=== PATIENT | female | born 1960 | race Two or more races ===

== ENCOUNTER 2022-12-10 07:56 | Day surgery (SDC) | payer MEDICAID ==
[2022-12-04 09:44] LABS: Basophils # (auto) 0 10 ^3/uL (0-0.2); Eosinophils # (auto) 0.2 10 ^3/uL (0-0.8); Lymphocytes # (auto) 1.7 10 ^3/uL (0.4-5.4); Monocytes # (auto) 0.5 10 ^3/uL (0-1.3); Monocytes % (auto) 7.2 % (0.0-12.0); Neutrophils # (auto) 4.5 10 ^3/uL (1.6-8.6); Neutrophils % (auto) 65.5 % (37.0-80.0); White Blood Cell 6.9 10^3/uL (4.4-10.8)
[2022-12-04 09:46] LABS: Basophils % (auto) 0.7 % (0.0-2.0); Eosinophils % (auto) 2.5 % (0.0-7.0); Hematocrit 30.4 % (36.0-46.0); Hemoglobin 9.7 g/dL (12.2-16.2); Lymphocytes % (auto) 24.1 % (10.0-50.0); Mean Corpuscular Hgb Conc. 31.8 g/dL (32.0-36.0); Mean Corpuscular Volume 69.2 fL (80.0-100.0); Red Blood Cells 4.39 10^6/uL (4.0-5.20); Red Cell Distribution Width 17.9 % (11.8-14.3)
[2022-12-04 09:49] LABS: Urine Bacteria NONE SEEN /hpf (None Seen); Urine Blood Negative /uL (Negative); Urine Clarity Clear (Clear); Urine Protein, UAD Negative (Negative); Urine Specific Gravity 1.017 (1.001-1.035); Urine Urobilinogen Normal (Negative); Urine WBC 1 /hpf (0 - 5); Urine pH 5.5 (5.0-8.0)
[2022-12-04 10:00] LABS: Urine Color Straw (Yellow)
[2022-12-04 10:23] LABS: Alkaline Phosphatase 94 U/L (46-116); Anion Gap 7 (5-15); Aspartate Aminotransferase 14 U/L (13-40); BUN/Creatinine Ratio 31.8 (10.0-20.0); Blood Urea Nitrogen 21 mg/dL (9-23); Calcium 9.5 mg/dL (8.5-10.1); Carbon Dioxide 27 mmol/L (20-30); Chloride 103 mmol/L (98-107); Glucose 118 mg/dL (74-106); Potassium 4.5 mmol/L (3.5-5.1); Sodium 137 mmol/L (136-145)
[2022-12-04 10:24] LABS: Albumin 4.4 g/dL (3.2-4.8)
[2022-12-04 10:25] LABS: Bilirubin, Total 0.3 mg/dL (0.2-1.0); Total Protein 7.8 g/dL (5.7-8.2)
[2022-12-04 10:40] LABS: Alanine Aminotransferase < 9 U/L (7-40)
[2022-12-04 10:55] LABS: INR 1.05 (0.9-1.15); Partial Thromboplastin Time 34.8 SEC (24.5-34.5)
[~2022-12-10] VITALS: Ht 152.4 cm; Wt 69.9 kg
[~2022-12-10 07:56] MED LIST: GLYB2.5T9 PO; IBUP-1453 PO; LISI20TA56 PO
[2022-12-10] MEDS ORDERED: ceFAZolin 2 GM/D5W100ml 100 ML IV ONE (09:03)
[2022-12-10] MEDS ORDERED: BUPIVACAINE 0.5% P/F INJ 10 ML VIAL ONE (10:00)
[2022-12-10] MEDS ORDERED: LIDOCAINE 1% HCL (LOCAL ANESTH.) INJ 20ML MDV ONE (10:00)
[2022-12-10] MEDS ORDERED: fentaNYL CITRATE 100 MCG/2 ML VL ONE (11:03)
[2022-12-10] MEDS ORDERED: MIDAZOLAM HCL 2MG/2ML 2ml VIAL (1mg/ml) ONE (11:04)
[2022-12-10] MEDS ORDERED: ONDANSETRON HCL 4 MG/2 ML VIAL ONE (11:05)
[2022-12-10] MEDS ORDERED: PROPOFOL 10 MG/ML 20 ML IV ONE (11:05)
[2022-12-10] MEDS ORDERED: LIDOCAINE 2% (LOCAL ANESTH.) PF 5ml SDV ONE (11:05)
[2022-12-10 11:52] VITALS: PULSE 67; RESP 12; TEMP 97.8; O2SAT 100
[2022-12-10 11:55] VITALS: PULSE 74; RESP 14; O2SAT 100
[2022-12-10] MEDS ORDERED: GLYCOPYRROLATE 0.2 MG/ML 1ML VIAL ONE (11:55)
[2022-12-10] MEDS ORDERED: NEOSTIGMINE 1 MG/ML INJ (10mg/10ML VIAL) ONE (11:55)
[2022-12-10 12:00] VITALS: PULSE 69; RESP 12; O2SAT 100
[2022-12-10 12:05] VITALS: PULSE 57; O2SAT 100
[2022-12-10] MEDS ORDERED: ONDANSETRON HCL 4 MG/2 ML VIAL IV PRN (12:15)
[2022-12-10] MEDS ORDERED: HYDROmorphone HCL 2 MG/ML VL/or syr IV PRN (12:15)
[2022-12-10] MEDS ORDERED: HYDROmorphone HCL 2 MG/ML VL/or syr IV ONE (12:31)
[2022-12-10 12:47] VITALS: BP 143/74; PULSE 54; RESP 15; O2SAT 100
== END 2022-12-10 13:20 | disposition home or self-care (01) ==
LOC: SUR 07:56
PROVIDERS: ATTEND Podiatrist
DX: M67.472 Ganglion, left ankle and foot (principal); E11.9 Type 2 diabetes mellitus without complications; I10 Essential (primary) hypertension; Z79.84 Long term (current) use of oral hypoglycemic drugs; Z79.899 Other long term (current) drug therapy
CPT/HCPCS: 28039; 36415; 80053; 81001; 82962; 85025; 85610; 85730; 88305; J1170; J2001; J2250; J2405; J2704; J3010; J3490

== ENCOUNTER → 2023-01-21 | Outpatient (CLI) | payer MEDICAID | END | disposition home or self-care (01) | LOC: LAB 16:38 | PROVIDERS: ATTEND Podiatrist | DX: M67.472 Ganglion, left ankle and foot (principal) | CPT/HCPCS: 87205 ==

== ENCOUNTER → 2024-04-07 | Day surgery (SDC) | payer MEDICAID ==
[2024-04-04 10:08] LABS: Urine Bacteria None Seen /hpf (None Seen)
[2024-04-04 10:34] LABS: Basophils # (auto) 0.1 10 ^3/uL (0-0.2); Basophils % (auto) 0.9 % (0.0-2.0); Eosinophils # (auto) 0.2 10 ^3/uL (0-0.8); Hematocrit 31.5 % (36.0-46.0); Hemoglobin 10.7 g/dL (12.2-16.2); Lymphocytes # (auto) 1.1 10 ^3/uL (0.4-5.4); Lymphocytes % (auto) 19.1 % (10.0-50.0); Mean Corpuscular Hemoglobin 27.7 pg (28.0-32.0); Mean Corpuscular Hgb Conc. 33.9 g/dL (32.0-36.0); Mean Corpuscular Volume 81.6 fL (80.0-100.0); Monocytes # (auto) 0.5 10 ^3/uL (0-1.3); Monocytes % (auto) 8.5 % (0.0-12.0); Neutrophils # (auto) 3.9 10 ^3/uL (1.6-8.6); Neutrophils % (auto) 68.5 % (37.0-80.0); Nucleated Red Blood Cells % 0.1 %; Platelet Count (auto) 402 10^3/uL (140-450); Red Blood Cells 3.86 10^6/uL (4.0-5.20); Red Cell Distribution Width 16.2 % (11.8-14.3); White Blood Cell 5.7 10^3/uL (4.4-10.8)
[2024-04-04 10:48] LABS: Alanine Aminotransferase 17 U/L (7-40); Albumin 4.5 g/dL (3.2-4.8); Alkaline Phosphatase 85 U/L (46-116); Anion Gap 6 (5-15); Aspartate Aminotransferase 13 U/L (13-40); BUN/Creatinine Ratio 19.6 (10.0-20.0); Bilirubin, Total 0.4 mg/dL (0.2-1.0); Blood Urea Nitrogen 11 mg/dL (9-23); Carbon Dioxide 29 mmol/L (20-31); Glucose 100 mg/dL (74-106); Potassium 4.5 mmol/L (3.5-5.1)
[2024-04-04 10:50] LABS: Urine Blood Negative /uL (Negative); Urine Clarity Clear (Clear); Urine Protein, UAD Negative (Negative); Urine Specific Gravity 1.006 (1.001-1.035); Urine Squamous Epithelial Cell FEW /hpf (<5); Urine Urobilinogen Normal (Negative); Urine WBC 2 /HPF (0-5); Urine pH 6.5 (5.0-9.0)
[2024-04-04 10:51] LABS: Urine Color Light-Yellow (Yellow)
[2024-04-04 10:53] LABS: Chloride 93 mmol/L (98-107); Sodium 128 mmol/L (136-145)
[2024-04-04 11:20] LABS: INR 0.99 (0.9-1.15); Partial Thromboplastin Time 33.3 SEC (24.5-34.5); Prothrombin Time 10.5 sec (9.3-11.8)
[~2024-04-07] VITALS: Ht 152.4 cm; Wt 73.5 kg
[~2024-04-07] MED LIST changes: +BENA40TA83 PO; +FER325T PO; +FOLI-119 PO; +HYDR-4491 OR; +HYDR25TA4 PO; -IBUP-1453 PO; -LISI20TA56 PO; +METH2.5T PO; +NAP500T PO; +PROPOFOL 10 MG/ML 20 ML IV ONE; +ePHEDrine SULFATE 50 MG/ML AMP ONE; +fentaNYL CITRATE 100 MCG/2 ML VL ONE
--- NOTE | 2024-04-07 10:58 | DVHHP2 ---
GI H&P Pre-Op Assessment Date: 04/07/24 Chief complaint: Anemia HPI: per clinic note Past medical history: per clinic note Past surgical history: per clinic note Family history: per clinic note Physical exam: General: NAD, AAOX3 HEENT: PERRL, no scleral icterus, normal hearing, gums without lesions or bleeding, oropharynx clear without erythema or exudate. Neck: Supple without enlargement of the thyroid, or lymphadenopathy. Chest: Normal size and shape, no tenderness, lung chavez clear to auscultation and percussion, nonlabored breathing. Heart: RRR, no murmur Abdomen: non-distended, no tenderness to palpation, +BS, no hepatosplenomegaly Extremities: no edema Neurological: CN II-XII intact, sensation intact in all extremities, 5+ strength in all extremities Skin: No rashes, No jaundice Assessment: - anemia Plan: - EGD - Colonoscopy - Risks (bleeding, infection, perforation, reaction to sedation medications and cardiopulmonary arrest) and benefit of the procedure were explained to patient. Patient agrees to undergo the procedure. LAUREN LOZANO MD Apr 07, 2024 10:58
[2024-04-07 11:30] VITALS: PULSE 82; RESP 17; TEMP 97.7
--- NOTE | 2024-04-07 11:31 | DVHOP2 ---
Operative Report DATE OF OPERATION: 04/07/24 PROCEDURE: Upper Endoscopy. PREOPERATIVE INDICATION: The patient is a 64 -year-old female undergoing endoscopy for anemia. POSTOPERATIVE DIAGNOSES: 1. Mild gastritis 2. Gastric polyps are likely to be fundic gland polyps. PROCEDURE PERFORMED BY: Thong Agarwal SCOPE: Olympus videoendoscope. ASA CLASS: 3 PREOPERATIVE MEDICATIONS: MAC with Dr Hyman PROCEDURE IN DETAIL: After obtaining an informed consent, the patient was placed on left lateral decubitus position. The patient was then sedated with the above medications. A bite block was placed between her teeth. The endoscope was then passed through the oropharynx, into the esophagus, and through the stomach and pylorus up to the second and third part of the duodenum. The duodenum was normal appearance. There was mild gastritis. Gastric biopsy obtained using cold biopsy forceps. There were gastric polyps the likely to be fundic gland polyps. Biopsy of the polyps was obtained with cold biopsy forceps. The GE junction was normal in appearance at 31 cm. The esophagus was normal in appearance. The endoscope was then withdrawn. The patient tolerated the procedure well without difficulty. COMPLICATIONS : None SPECIMENS: Gastric biopsies, gastric polyp biopsies DISPOSITION: D/C to home PLAN: 1. Await for biopsy result 2. Will place pt on Protonix THONG AGARWAL MD Apr 07, 2024 11:31
--- NOTE | 2024-04-07 11:32 | DVHOP2 ---
Operative Report DATE OF OPERATION: 04/07/24 PROCEDURE: Colonoscopy. PREOPERATIVE INDICATION: The patient is a 64 -year-old female undergoing colonoscopy for anemia. POSTOPERATIVE DIAGNOSES: 1. Normal terminal ileum 2. Diffuse diverticulosis 3. Internal hemorrhoids PROCEDURE PERFORMED BY: Thong Agarwal M.D. SCOPE: Olympus videocolonoscope. ASA CLASS: 3 PREOPERATIVE MEDICATIONS: MAC with Dr Hyman PROCEDURE IN DETAIL: After obtaining an informed consent, the patient was placed on left lateral decubitus position. She was then sedated with the above medications. A rectal examination was performed that was normal. The colonoscope was then passed through the anus into the rectosigmoid and through the descending, transverse, and ascending colon up to the cecum with visualization of the appendiceal orifice, base of the cecum and the ileocecal valve. The colonoscope was advanced into the terminal ileum. The observed terminal ileum was normal in appearance. There was diffuse diverticulosis. No mass or polyp was observed in the colon. There were internal hemorrhoids. The colonoscope was then withdrawn. The patient tolerated the procedure well without difficulty. WITHDRAWAL TIME: 8 minutes QUALITY OF THE PREP: [place] Bowel Prep score: 7 COMPLICATIONS : None SPECIMENS: None DISPOSITION: D/C to home PLAN: 1. Patient care repeat colonoscopy in 10 years for colon cancer screening. THONG AGARWAL MD Apr 07, 2024 11:32
--- NOTE | 2024-04-07 11:33 | DVHDS2 ---
Physician Discharge Progress N Final Diagnosis: Gastritis, gastric polyp Diverticulosis, internal hemorrhoids Operations or Procedures: Operations or Procedures EGD with cold biopsy Colonoscopy Condition on Discharge: Good Disposition: Home Discharge Instructions: Diet: Regular Activity: No Restrictions, As Tolerated Medications: Resume with previous home medications Follow Up Care: Discharge Statement: "Patient was advised to return to the ER or call 911 if any headaches, dizziness, shortness of breath, chest pain, abdominal pain, bleeding, fevers, or worsening of medical condition. Patient was counseled about treatment plan, medications, possible side effects, patientverbalized understanding. All questions were answered to the best of my ability. This discharge took greater then 30 minutes in planning, reviewing documentation, counseling the patient, and discussing with other team members." LAUREN LOZANO MD Apr 07, 2024 11:33
[2024-04-07 11:45] VITALS: PULSE 87; RESP 14
[2024-04-07 12:00] VITALS: BP 128/84; PULSE 79; RESP 13; O2SAT 100
== END | disposition home or self-care (01) ==
LOC: GI 09:26
PROVIDERS: ATTEND Internal Medicine Gastroenterology
DX: D64.9 Anemia, unspecified (principal); K31.7 Polyp of stomach and duodenum; K57.30 Diverticulosis of large intestine without perforation or abscess without bleeding; K64.8 Other hemorrhoids; K29.50 Unspecified chronic gastritis without bleeding; E11.9 Type 2 diabetes mellitus without complications; I10 Essential (primary) hypertension; Z98.890 Other specified postprocedural states; Z79.899 Other long term (current) drug therapy; Z79.84 Long term (current) use of oral hypoglycemic drugs
CPT/HCPCS: 36415; 43239; 45378; 80053; 81001; 82962; 85025; 85610; 85730; 88305; 88312; 88342; J2704; J3010